=== PATIENT | male | born 1960 ===

== ENCOUNTER 2023-01-21 20:35 | Emergency (ER) | payer SELFPAY ==
[~2023-01-21] VITALS: Ht 175.3 cm; Wt 92.7 kg
[2023-01-21 20:45] VITALS: BP 161/80; PULSE 68; RESP 18; TEMP 98
[2023-01-21 21:06] LABS: GLUCOMETER DEV NAME(LOC) ERT.5
[2023-01-21] MEDS ORDERED: ACETAMINOPHEN 500 MG TABLET PO ONE (22:15)
[2023-01-21] MEDS ORDERED: BACITRACIN 0.9 GM PACKET OINTMENT TP ONE (22:15)
[2023-01-21] MEDS ORDERED: PERTUSS(ACELL),DIPH,TET VAC/PF 0.5 ML SYRINGE IM. ONE (22:15)
== END 2023-01-21 23:34 | disposition left against medical advice (07) ==
LOC: EMS 20:35
DX: S19.9XXA Unspecified injury of neck, initial encounter (principal); E11.9 Type 2 diabetes mellitus without complications; I10 Essential (primary) hypertension; Z90.49 Acquired absence of other specified parts of digestive tract; V89.2XXA Person injured in unspecified motor-vehicle accident, traffic, initial encounter; Y93.89 Activity, other specified; Y92.89 Other specified places as the place of occurrence of the external cause; Y99.8 Other external cause status
CPT/HCPCS: 70450; 71250; 72125; 72131; 82962; 90471; 90715; 99285